=== PATIENT | female | born 1945 | race Caucasian/White ===

== ENCOUNTER 2018-01-31 10:53 | Day surgery (SDC) | payer OTHER, MEDICAID ==
[2018-01-31] MEDS ORDERED: LIDOCAINE 4% SOLUTION 50 ML BTL (11:32)
[2018-01-31] MEDS ORDERED: DIPHENHYDRAMINE 50 MG INJ (11:46)
[2018-01-31] MEDS ORDERED: hydrALAzine 20 MG INJ (12:01)
[2018-01-31] MEDS ORDERED: FENTAnyl 50 MCG/ML VIAL (12:40)
[2018-01-31] MEDS ORDERED: MIDAZOLAM 1 MG/ML 2 ML INJ ×2 (12:40)
== END 2018-01-31 14:37 | disposition home or self-care (01) ==
LOC: GIL 10:53
DX: R19.5 Other fecal abnormalities (principal); D12.2 Benign neoplasm of ascending colon; K20.9 Esophagitis, unspecified; K57.90 Diverticulosis of intestine, part unspecified, without perforation or abscess without bleeding; K64.4 Residual hemorrhoidal skin tags
CPT/HCPCS: 43239; 88305; 88312